=== PATIENT | female | born 1965 | race American Indian/Alaskan Native ===

== ENCOUNTER 2018-08-14 05:54 | Day surgery (SDC) | payer OTHER ==
[~2018-08-14 05:54] MED LIST: ANCEF/STERILE WATER 2 GM/20 ML 2 GM/20 ML SYRINGE IV NR
[2018-08-14] MEDS ORDERED: VERSED IV NR (06:54)
[2018-08-14] MEDS ORDERED: LACTATED RINGERS 1,000 ML IV SCH (07:00)
[2018-08-14] MEDS ORDERED: PEPCID IV NR (07:00)
[2018-08-14] MEDS ORDERED: ADRENALIN IV ONE ×3 (07:02→08:11)
[2018-08-14] MEDS ORDERED: XYLOCAINE 1% 20 mL ONE ×3 (07:02→07:25)
[2018-08-14] MEDS ORDERED: XYLOCAINE 1%/ EPI 1:100,000 INFILTRATI ONE ×2 (07:03→08:11)
[2018-08-14] MEDS ORDERED: NACL 0.9% 1000 ML 4,000 ML ONE (07:04)
[2018-08-14] MEDS ORDERED: NACL BACTERIOSTATIC INFILTRATI ONE (07:10)
[2018-08-14] MEDS ORDERED: SUBLIMAZE ONE ×2 (07:15→12:49)
[2018-08-14] MEDS ORDERED: DIPRIVAN 10 MG/ML IV ONE ×2 (07:16→10:16)
[2018-08-14] MEDS ORDERED: VERSED ONE (07:21)
[2018-08-14] MEDS ORDERED: NACL 0.9% 1000 ML 2,000 ML ONE (07:25)
[2018-08-14] MEDS ORDERED: TRANSDERM-SCOP TD ONE (07:28)
[2018-08-14] MEDS ORDERED: TRANSDERM-SCOP TD NR (08:00)
[2018-08-14] MEDS ORDERED: XYLOCAINE 2% INFILTRATI ONE ×2 (08:11)
[2018-08-14] MEDS ORDERED: NACL 0.9% 1000 ML IR ONE ×2 (08:11)
[2018-08-14] MEDS ORDERED: NEO SYNEPHRINE/NS Syringe(OR USE) IV ONE (08:27)
[2018-08-14] MEDS ORDERED: XYLOCAINE MPF 2% ONE (08:27)
[2018-08-14] MEDS ORDERED: LACTATED RINGERS 1,000 ML ONE (08:27)
[2018-08-14] MEDS ORDERED: ZEMURON IV ONE ×2 (08:27→08:31)
[2018-08-14] MEDS ORDERED: QUELICIN ONE (08:27)
--- NOTE | 2018-08-14 08:44 | Anesthesia Day of Surgery ---
Anesthesia Day of Surgery - Day of Surgery Patient Examined: Yes Patient H&P Reviewed: Yes Patient is NPO: Yes
--- NOTE | 2018-08-14 08:44 | Anesthesia Consultation ---
Anesthesia Consult and Med Hx - Airway Anesthetic Teeth Evaluation: Good ROM Head & Neck: Adequate Mental/Hyoid Distance: Adequate Mallampati Class: Class II Intubation Access Assessment: Good - Pulmonary Exam CTA: Yes - Cardiac Exam Cardiac Exam: RRR - Pre-Operative Health Status ASA Pre-Surgery Classification: ASA2 Proposed Anesthetic Plan: General - Pulmonary Hx Smoking: Yes (1 packet a week) - Gastrointestinal Hx Gastroesophageal Reflux Disease: Yes - Other Systems Hx Cancer: No - Additional Comments Anesthesia Medical History Comments: Pt with hx of GERD , + smoker for GA
[2018-08-14] MEDS ORDERED: ZOFRAN IV PRN ×2 (09:00→13:02)
[2018-08-14] MEDS ORDERED: DILAUDID IV PRN (09:00)
[2018-08-14] MEDS ORDERED: DILAUDID ONE (11:00)
[2018-08-14] MEDS ORDERED: NORCO 7.5/325 PO PRN (13:02)
[2018-08-14] MEDS ORDERED: PROVENTIL IH ONE ×2 (13:02→13:10)
--- NOTE | 2018-08-14 13:02 | Operative Report ---
Operative Report Operative Report: Plastic Surgery Operative Note Preop Diagnosis: Unacceptable Cosmetic Appearance; Contour irregularity after liposuction Postop Diagnosis: Same Procedure: Revision Liposuction of upper and lower abdomen, full waistline, bra rolls and axilla Findings: Removal of 8950cc total aspirate, 5100cc of pure fat Specimens: None Anesthesia: General Surgeon: Dr. Tiffanie Ellis Whipper(s): None EBL: 100cc Indications: This patient is a 52 year old AAF who underwent liposuction of the abdomen and back with fat grafting to the buttocks by another doctor. She is very unhappy with the results because she notes extreme contour irregularities. The doctor is no longer in practice, so she was looking for correction of the deformity. The patient is a great candidate for a full lipoabdominoplasty, but she does not care about the skin or want excess skin excised at this time. Instead she wants the "hills and valleys" evened out and then she will decide at a later date if she wants a tummy tuck. We agreed on this plan and decided to proceed with surgery. Procedure Details: After review of pertinent history and physical exam data and marking the patient was brought into the operating room and placed supine on the OR table. After induction of adequate general anesthesia the patient's abdomen was prepped and draped in the usual sterile surgical fashion. After timeout, 5 anterior incisions were made using a No. 11 blade for subcutaneous infiltration of the tissue with tumescent solution. 3 L was infiltrated and once this was done sufficient time elapsed for epinephrine effect was allowed. Using power assisted liposuction, subcutaneous fat was removed until satisfactory contour was achieved. Anterior incisions were then closed each with a single 4-0 Monocryl subcutaneous suture. The patient was then turned to the prone position where 5 incisions were made using a No. 11 blade and once again tumescent solution was infiltrated, approximately 2 L into the posterior waist, bra rolls and axilla for total body infiltration of 5 L. Power assisted liposuction was performed removing subcutaneous fat to a level of satisfactory contour, after which point all incisions were closed with 4-0 Monocryl sutures. The patient was then turned back supine and awakened from general anesthesia. Post operative compression garment was placed and padded with ABD pads in the OR, after which the patient was transferred to PACU in stable condition. There were no complications and all sponge and needle counts were correct at the end of the case. Patient tolerated the procedure well.
[2018-08-14] MEDS ORDERED: PHENERGAN PR ONE ×2 (14:20→14:23)
--- NOTE | 2018-08-14 16:47 | Post Anesthesia Evaluation ---
- Post Anesthesia Evaluation Patient Participated: Yes Airway Patent: Yes Stable Respiratory Function: Yes Nausea/Vomiting: No Temp > 96.8F: Yes Pain Manageable: Yes Adequeate Hydration: Yes Anesthesia Complications: No Block Receding Appropriately: Not Applicable
[2018-08-14 19:11] VITALS: BP 154/75
== END 2018-08-14 16:45 | disposition home or self-care (01) ==
LOC: OR 05:54
PROVIDERS: ATTEND Plastic Surgery
DX: Z41.1 Encounter for cosmetic surgery (principal); F17.210 Nicotine dependence, cigarettes, uncomplicated; K21.9 Gastro-esophageal reflux disease without esophagitis; Z79.899 Other long term (current) drug therapy; Z98.890 Other specified postprocedural states
CPT/HCPCS: 15877; J0171; J0330; J0690; J1170; J2250; J2370; J2405; J2704; J3010; J7030; J7120